=== PATIENT | female | born 1930 | race African-American/Black ===

== ENCOUNTER 2018-02-26 06:41 | Day surgery (SDC) | payer MEDICARE, BC ==
[~2018-02-26] VITALS: Ht 161.3 cm; Wt 52.6 kg
[~2018-02-26 06:41] MED LIST: BIFI4CAP PO; BIMA2.5D4 BOTHEYE; CELE200C PO; DILT180C69 PO; NEPT50 PO; TRAM50TA3 PO
[2018-02-26] MEDS ORDERED: HYALURONATE SODIUM 14 MG/ML 0.85ML SYRINGE IO ONE ×2 (07:05→08:41)
[2018-02-26] MEDS ORDERED: BALANCED SALT IRRIG SOLN COMB2 500ML OP ONE (07:15)
[2018-02-26] MEDS ORDERED: PHENYLEPHRINE HCL 10% OPHTH DROPS 5ML LEFTEYE SCH (07:30)
[2018-02-26] MEDS ORDERED: TROPICAMIDE 1% OPHTH DROPS 15ML LEFTEYE SCH (07:30)
[2018-02-26] MEDS ORDERED: LACTATED RINGERS 1,000 ML IV SCH (07:30)
[2018-02-26] MEDS ORDERED: CYCLOPENTOLATE HCL 1% OPHTH DROPS 2ML LEFTEYE SCH (07:30)
[2018-02-26] MEDS ORDERED: PROPOFOL 200MG/20ML VIAL IV ONE (07:57)
[2018-02-26] MEDS ORDERED: MIDAZOLAM HCL 2 MG/2 ML VIAL ONE (07:57)
[2018-02-26] MEDS ORDERED: CEFAZOLIN SODIUM 1000MG/VIAL ONE (08:59)
[2018-02-26] MEDS ORDERED: HYDROMORPHONE HCL/PF 2MG/ML CPJ IV PRN (09:00)
[2018-02-26] MEDS ORDERED: ONDANSETRON HCL 4MG/2ML VIAL IV PRN (09:00)
[2018-02-26] MEDS ORDERED: BUPIVACAINE HCL/PF 0.75% (7.5MG/ML) 10ML ONE (11:07)
[2018-02-26] MEDS ORDERED: LIDOCAINE HCL/PF 2% 20 MG/ML 10ML VIAL ONE (11:07)
[2018-02-26] MEDS ORDERED: TROPICAMIDE 1% OPHTH DROPS 15ML ONE (11:07)
[2018-02-26] MEDS ORDERED: NEO/POLYMYX B SULF/DEXAMETH OPHTH OINT 3.5GM ONE (11:07)
[2018-02-26] MEDS ORDERED: CYCLOPENTOLATE HCL 1% OPHTH DROPS 2ML ONE (11:07)
[2018-02-26] MEDS ORDERED: CIPROFLOXACIN 0.3% OPHTH SOLN 2.5ML ONE (11:07)
[2018-02-26] MEDS ORDERED: TETRACAINE 0.5% OPHTH DROPS 4ML ONE (11:07)
[2018-02-26] MEDS ORDERED: BALANCED SALT IRRIG SOLN 15ML ONE (11:07)
[2018-02-26] MEDS ORDERED: LIDOCAINE HCL 2%/EPINEPHRINE 1:100,000 20 ML VIAL INFIL ONE (11:07)
[2018-02-26] MEDS ORDERED: PREDNISOLONE ACETATE 1% OPHTH DROPS 1ML ONE (11:07)
[2018-02-26] MEDS ORDERED: PHENYLEPHRINE HCL 10% OPHTH DROPS 5ML ONE (11:07)
== END 2018-02-26 10:15 | disposition home or self-care (01) ==
LOC: OR 06:41
PROVIDERS: ATTEND Ophthalmology
DX: H25.012 Cortical age-related cataract, left eye (principal); I10 Essential (primary) hypertension; J44.9 Chronic obstructive pulmonary disease, unspecified; I25.10 Atherosclerotic heart disease of native coronary artery without angina pectoris; I11.9 Hypertensive heart disease without heart failure; F17.210 Nicotine dependence, cigarettes, uncomplicated; F41.9 Anxiety disorder, unspecified; M17.12 Unilateral primary osteoarthritis, left knee; Z79.899 Other long term (current) drug therapy; Z79.1 Long term (current) use of non-steroidal anti-inflammatories (NSAID); Z98.890 Other specified postprocedural states
CPT/HCPCS: 66984; J0690; J2250; J3490; J7120; V2632; J2704